=== PATIENT | male | born 1990 | race Caucasian/White ===

== ENCOUNTER 2018-04-29 09:51 | Outpatient (CLI) | payer OTHER ==
[2018-04-29 18:07] LABS: BUN - BLOOD UREA NITROGEN 13 mg/dL (6-20); CALCIUM 9.4 mg/dL (8.5-10.3); CARBON DIOXIDE - CO2 27 mmol/L (21-32); CHLORIDE 100 mmol/L (101-111); CHOL/HDL RATIO 5.6 (<5.0); CHOLESTEROL 280 mg/dL; CREATININE 0.7 mg/dL (0.6-1.2); GFR - MDRD 133 (>89); GLUCOSE 101 mg/dL (70-100); HDL CHOLESTEROL 50 mg/dL; LDL CHOLESTEROL,CALCULATED 173 mg/dL; LDL/HDL RATIO 3.5 (<3.6); SODIUM 135 mmol/L (135-145); VLDL CHOLESTEROL 57 mg/dL
== END 2018-04-29 09:52 | disposition home or self-care (01) ==
LOC: LAB.F 09:51
PROVIDERS: ATTEND Internal Medicine
DX: Z00.00 Encounter for general adult medical examination without abnormal findings (principal)
CPT/HCPCS: 36415; 80048; 80061; 83721